=== PATIENT | female | born 1995 | race Hispanic/Latino ===

== ENCOUNTER 2017-02-23 00:51 | Emergency (ER) | payer SELFPAY ==
[2017-02-23] MEDS ORDERED: CLINDAMYCIN HCL 150 MG CAP ONE (03:44)
== END 2017-02-23 04:02 | disposition home or self-care (01) ==
LOC: EDH 00:51
DX: L03.116 Cellulitis of left lower limb (principal); L84 Corns and callosities
CPT/HCPCS: 29515

== ENCOUNTER 2018-03-26 19:28 | Observation (INO) | payer OTHER ==
[~2018-03-26] VITALS: Ht 162.6 cm; Wt 107.0 kg
[2018-03-26 21:04] LABS: BASOPHILS % (AUTO) 0.7 % (0.0-5.0); EOSINOPHILS % (AUTO) 1.7 % (0.0-8.0); MEAN CORPUSCULAR HEMOGLOBIN 26.3 pg (27.0-33.0); MEAN CORPUSCULAR HGB CONC 33.1 g/dL (32.0-36.0); MEAN CORPUSCULAR VOLUME 79.5 fL (79-99); MONOCYTES % (AUTO) 7.2 % (3.0-13.0); NEUTROPHILS % (AUTO) 60.4 % (40.0-77.0); NUCLEATED RED BLOOD CELLS 0.1 % (0.0-0.19); PLATELET COUNT (AUTO) 480 K/uL (130-400); RED BLOOD CELL COUNT(AUTO) 2.61 MIL/uL (4.00-5.50); RED CELL DISTRIBUTION WIDTH 13.5 % (11.0-15.5); WHITE BLOOD COUNT (AUTO) 9.5 K/uL (4.8-10.8)
[2018-03-26 21:14] LABS: HEMATOCRIT 20.7 % (36-48)
[2018-03-26 21:15] LABS: CREATININE 0.9 mg/dL (0.5-1.5); POTASSIUM 3.9 mmol/L (3.5-5.1)
[2018-03-26 21:20] LABS: BILIRUBIN,URINE Negative (NEGATIVE); COLOR,URINE Yellow (YELLOW); GLUCOSE, URINE (UA) Negative (NEGATIVE); KETONES,URINE Trace mg/dL (NEGATIVE); LEUKOCYTE ESTERASE ,URINE Negative (NEGATIVE); NITRATE,URINE Negative (NEGATIVE); OCCULT BLOOD,URINE Large (NEGATIVE); PROTEIN,URINE Negative (NEGATIVE)
[2018-03-26 21:22] LABS: APPEARANCE,URINE CLEAR (CLEAR)
[2018-03-26 21:24] LABS: HCG,QUAL RESULT NEGATIVE (NEGATIVE)
[2018-03-26 21:27] LABS: BACTERIA,URINE Rare /HPF (None Seen); SQUAMOUS EPITHELIAL CELL,UR Few /HPF (0-2); WBC,URINE 0-1 /HPF (0-1)
--- NOTE | 2018-03-26 22:35 | NUR ---
PATIENT RECEIVED FROM ED: Patient came in via wheelchair from ED accompanied by oxygen therapy teacher with mother. Patient oriented to room, call light given. Plan of care discussed with patient verbalizes understanding.
[2018-03-26 22:40] VITALS: BP 117/66
[2018-03-26] MEDS ORDERED: SODIUM CHLORIDE 0.9% 1000ML 1,000 ML IV ONE (23:15)
[2018-03-26] MEDS ORDERED: ACETAMINOPHEN EXTRA STRENGTH 500 MG TABLET PO ONE (23:15)
[2018-03-26] MEDS ORDERED: DIPHENHYDRAMINE HCL 25 MG CAPSULE PO ONE (23:15)
--- NOTE | 2018-03-26 23:15 | NUR ---
Tanesha pad: Patient voided mauricio pad check with small brownish red vaginal discharges. Denies any feeling of dizziness.
[2018-03-27] MEDS ORDERED: ESTROGENS,CONJUGATED 25 MG/VIAL IV SCH
[2018-03-27 00:32] VITALS: BP 103/66
[2018-03-27] MEDS ORDERED: MEDR5TAB PO (01:11)
[2018-03-27] MEDS ORDERED: FERR220S7 PO (01:11)
[2018-03-27 03:05] VITALS: BP 90/52
--- NOTE | 2018-03-27 05:35 | NUR ---
Pelvic Ultrasound: Pelvic ultrasound here patient drink more water for her bladder to be full as requested by [facility] staff. Ultrasound result pending.
--- NOTE | 2018-03-27 05:55 | NUR ---
PRBC: Blood Transfusion 2 units done. Blood Transfusion unit informed me to do 2 hours H & H. @ packs PRBC on hold.
[2018-03-27] MEDS: ESTROGENS,CONJUGATED 25 MG/VIAL IV SCH ×2 (06:40→14:29)
[2018-03-27] MEDS ORDERED: LACTATED RINGERS 1000ML 1,000 ML IV SCH (07:00)
[2018-03-27 07:40] VITALS: BP 102/62
--- NOTE | 2018-03-27 08:30 | NUR ---
PAD COUNT PT REMOVED BAMBI-PAD, NOTED ONLY 3 SMALL SPOTS ON PAD, WILL CONTINUE WITH PAD COUNT INDICATED BY DOCTOR
--- NOTE | 2018-03-27 11:30 | NUR ---
PRBC 3rd UNIT OF PRBCs COMPLETED, NO TRANSFUSION REACTION NOTED, PT AAO X3, LAYING IN RL, NO C/O PAIN NOR DISCOMFORT, WILL BEGIN 4th UNIT ONCE RECEIVED
[2018-03-27 12:02] VITALS: BP 114/69
--- NOTE | 2018-03-27 12:04 | NUR ---
PAD COUNT PT REMOVED 1 PAD WITH 2 SMALL SPOTS NOTED ON PAD, URINE IS LOOKING LESS RED-TINGED AND MORE YELLOW, WILL CONTINUE TO MONITOR
--- NOTE | 2018-03-27 13:40 | NUR ---
PRBCs PT RECEIVED 4th AND FINAL UNIT OF BLOOD, NO TRANSFUSION REACTION NOTED, PT AAO X3, IV FLUSHED WITH NS, PT TOLERATED WELL; POC DISCUSSED WITH PT AND FAMILY, PT VERBALIZED UNDERSTANDING
--- NOTE | 2018-03-27 15:05 | NUR ---
DISCHARGE PT STABLE, NO PAIN, NO COMPLAINTS; PT LEFT UNIT, VIA WHEELCHAIR, ACCOMPANIED BY ALONSO BO AND FAMILY MEMBERS CARRYING ALL PERSONAL BELONGINGS, INSTRUCTIONS, AND PRESCRIPTION; PT VERBALIZED AND SIGNED UNDERSTANDING OF ALL INSTRUCTIONS AND PRESCRIPTION; PT LEFT FACILITY IN PERSONAL VEHICLE
== END 2018-03-27 15:05 | disposition home or self-care (01) ==
LOC: EDH 19:28 → EDHIP 19:29 → WSH 22:35
PROVIDERS: ADMIT Obstetrics & Gynecology; ATTEND Obstetrics & Gynecology
DX: N92.1 Excessive and frequent menstruation with irregular cycle (principal); D64.9 Anemia, unspecified
CPT/HCPCS: 36415 ×2; 36430; 76856; 80048; 81001; 81025; 85014; 85018; 85025; 86850; 86900; 86901; 86922; 96374; 96376; 99284; A4218 ×2; G0378 ×20; J1410; J7030 ×2; J7120; P9016 ×4; Q0163